=== PATIENT | female | born 1990 | race Caucasian/White ===

== ENCOUNTER → 2025-06-23 | Outpatient (CLI) | payer MEDICAID, SELFPAY ==
--- NOTE | 2025-06-23 15:00 | XR_ITS ---
Examination: Abdomen sonogram, complete Date and time of exam: June 23, 2025 1517 hours INDICATIONS: Epigastric pain beginning 5 months ago. Technique: Multiple real-time grayscale transabdominal sonographic images of the abdomen have been obtained. Findings: Normal gallbladder. Normal common bile duct 0.4 cm Pancreatic head 1.9 cm Aorta not enlarged. Liver 13.1 cm fatty infiltration Normal hepatopedal portal venous flow Patent IVC Right kidney 11.7 cm cortex 1.4 cm, mild right hydronephrosis Left kidney 11.7 cm cortex 1.8 cm Mild hydronephrosis Spleen 8.8 cm IMPRESSION: Normal gallbladder Liver normal size Mild bilateral hydronephrosis, consider CT scan abdomen pelvis without contrast follow-up to assess etiology of the hydronephrosis
--- NOTE | 2025-06-23 15:00 | XR_ITS ---
Examination: Pelvic ultrasound, transabdominal, complete Technique: Transabdominal ultrasound of the pelvis performed using grayscale imaging Date and time of exam: June 23, 2025 1527 hours INDICATIONS: Pelvic pain beginning one year ago FINDINGS: Uterus 9.4 cm endometrial stripe 1.7 cm No uterine mass or intrauterine gestation Right ovary 3.6 cm arterial flow 28 x 22 x 23 mm cyst Left ovary obscured by bowel gas Mild free fluid in the pelvis IMPRESSION: Right ovarian simple cyst 20 x 23 x 22 mm
== END | disposition home or self-care (01) ==
DX: N13.30 Unspecified hydronephrosis (principal); N83.291 Other ovarian cyst, right side
CPT/HCPCS: 76700; 76856

== ENCOUNTER 2025-07-29 10:09 | Emergency (ER) | payer MEDICAID, SELFPAY ==
[2025-07-29 10:09] VITALS: BMI 30.9
[2025-07-29 10:21] VITALS: BP 117/81; PULSE 88; RESP 18; TEMP 36.8; O2SAT 99
--- NOTE | 2025-07-29 10:21 | XR_ITS ---
Examination: CT abdomen and pelvis without contrast. Coronal 3-D reconstructions. Sagittal 2-D reconstructions. Date and time of exam: July 29, 2025, 1249 hours INDICATIONS: Lower abdominal pain and nausea beginning today CTDI: vol (mGy): 8.73 DLP: (mGycm): 482 Technique: Axial images of the abdomen have been obtained, 3 mm slice thickness Intravenous contrast material has not been administered. Low dose protocols were performed. One or more of the following dose reduction techniques were used; automated exposure control, adjustment of the mA and/or KV according to patient size, use of iterative reconstruction technique. Findings: No visualized liver or splenic lesion No gallstones No pancreatic mass Normal adrenal glands Mild right hydronephrosis, no renal or ureteral calculi Aorta normal size Normal appendix Retroverted uterus Enlarged right ovary with cystic change Urinary bladder intact Osseous structures intact IMPRESSION: Mild right hydronephrosis, consider urinary tract infection Normal appendix Right ovarian cystic disease, please see the pelvic sonogram 06/23/2025
--- NOTE | 2025-07-29 10:22 | EDRME_ITS ---
Rapid Medical Screening Exam [facility] Arrival date/time: 07/29/25 10:09 34-year-old female with no known medical history presents to the emergency room with a chief complaint of 10 out of 10 lower abdominal pain, nausea x 1 week I have greeted and performed a focused initial assessment of this patient. A comprehensive ED assessment and evaluation of the patient, analysis of all test results, and completion of the medical decision making process will be conducted by additional ED providers. Chief Complaint: Abdominal Pain Time Seen by Provider: 07/29/25 10:17 Vital signs: Vital Signs Temperature 98.2 F 07/29/25 10:21 Pulse Rate 88 07/29/25 10:21 Respiratory Rate 18 07/29/25 10:21 Blood Pressure 117/81 07/29/25 10:21 Pulse Oximetry (%) 99 07/29/25 10:21 Oxygen Delivery Method Room Air 07/29/25 10:21 Vital signs reviewed by provider: Yes Exam: Patient has 10 out of 10 lower abdominal pain to the right lower quadrant and left lower quadrant with palpation. Patient has active bowel sounds to all 4 quadrants Patient has a strong and regular rhythm S1 and S2 noted Clinical Impression: Gastroenteritis/appendicitis/cholelithiasis
[2025-07-29] MEDS: ONDANSETRON ODT 4 MG TABRAP PO (10:28)
[2025-07-29] MEDS: HYDROcodone/APAP 5/325 TABLET 1 TAB PO (10:28)
[2025-07-29 10:43] LABS: Basophils # (Auto) 0.0 Thou/mm3 (0.0-0.2); Basophils % (Auto) 0 % (0-2.5); Eosinophils # (Auto) 0.1 Thou/mm3 (0.0-0.5); Eosinophils % (Auto) 0 % (0-10); Hematocrit 36.6 % (36.0-46.0); Hemoglobin 12.0 g/dL (12.0-16.0); Immature Granulocytes Auto 0.05 Thou/mm3 (0.00-0.00); Lymphocytes # (Auto) 1.7 Thou/mm3 (1.0-4.8); Lymphocytes % (Auto) 12 % (10-50); Mean Corpuscular HGB Conc 32.8 g/dl (31.0-37.0); Mean Corpuscular Hemoglobin 27.5 pg (25.0-35.0); Mean Corpuscular Volume 84 fL (80-100); Monocytes # (Auto) 0.6 Thou/mm3 (0.0-0.8); Monocytes % (Auto) 4 % (0-12); Neutrophils # (Auto) 11.5 Thou/mm3 (1.8-7.7); Neutrophils % (Auto) 82 % (37-80); Nucleated Red Blood Cell # 0.00 Thou/mm3 (0.00-0.00); Nucleated Red Blood Cell % 0 /100 WBC (0); Platelet Count 403 Thou/mm3 (140-440); RDW Standard Deviation 46.4 fL (36.4-46.3); Red Blood Count 4.37 Miln/mm3 (4.00-5.20); White Blood Count 13.9 Thou/mm3 (3.6-11.0)
[2025-07-29 10:59] LABS: Alanine Aminotransferase 11 U/L (10-49); Albumin, Serum 4.9 gm/dL (3.5-5.0); Albumin/Globulin Ratio 1.9 (1.2-2.2); Alkaline Phosphatase 81 U/L (46-116); Anion Gap 12 (7-16); Aspartate Amino Transferase 15 U/L (0-34); BUN/Creatinine Ratio 13 Ratio (12-20); Bilirubin,Total 0.5 mg/dL (0.3-1.2); Blood Urea Nitrogen 9 mg/dL (9-23); Calcium 9.3 mg/dL (8.3-10.6); Calcium (Corrected) 9.3 mg/dL (8.5-10.1); Carbon Dioxide 23.5 mMol/L (20.0-31.0); Chloride 104 mMol/L (98-107); Creatinine (Component) 0.7 mg/dL (0.6-1.3); Estimated Creatinine Clearance 111.9 mL/min (>60); Globulin 2.6 gm/dL (2.3-3.5); Glucose 127 mg/dL (74-106); Lipase 29 U/L (12-53); Osmolality,Calculated 278 (275-295); Potassium 3.6 mMol/L (3.4-5.1); Sodium 139 mMol/L (136-145); Total Protein 7.5 gm/dL (5.7-8.2); eGFR > 60 See Note
[2025-07-29 11:18] LABS: Collection Type, Urine Clean Catch
[2025-07-29 11:27] LABS: Bilirubin,Urine Negative (Negative); Blood,Urine 3+ (Negative); Glucose, Urine Negative (Negative); Ketones,Urine Trace (Negative); Leukocyte Esterase,Urine Positive (Negative); Nitrite,Urine Negative (Negative); PH,Urine 6.5 (5.0-7.0); Protein,Urine 1+ (Neg - Trace); RBC,Urine 1708 /hpf (0-3); Specific Gravity,Urine 1.026 (1.001-1.035); Squamous Epithelial Cell,Urine 4 /hpf (0-5); Urobilinogen,Urine Negative mg/dL (0.0-1.0); WBC,Urine 7 /hpf (0-5)
[2025-07-29 11:33] LABS: Clarity,Urine Hazy (Clear/Hazy); Color,Urine Lt Yellow (Lt Yel-Yel)
[2025-07-29 11:55] LABS: HCG Qualitative,Urine Negative
--- NOTE | 2025-07-29 12:32 | PD.EDABDPN ---
ED Abdominal Pain RME/HPI General Chief Complaint: Abdominal Pain Stated complaint: R LOWER ABD PAIN X12 HRS Time seen by provider: 07/29/25 10:17 Arrival date/time: 07/29/25 10:09 Source: patient and RN notes reviewed Mode of arrival: ambulatory Limitations: no limitations RME / HPI complaint: abdominal pain Onset (ago): week(s) (1) Consistency: intermittent Location: R flank Severity: mild Severity scale (1-10): 8 Quality: stabbing Radiation: RLQ Migration to: no migration Relieving factors: nothing Exacerbating factors: nothing Context: history of similar episodes (Kidney stone possibly in the past) Associated symptoms: nausea and vomiting RME / HPI narrative: 07/29/25 10:09 34-year-old female with no known medical history presents to the emergency room with a chief complaint of 10 out of 10 lower abdominal pain, nausea x 1 week I have greeted and performed a focused initial assessment of this patient. A comprehensive ED assessment and evaluation of the patient, analysis of all test results, and completion of the medical decision making process will be conducted by additional ED providers. Exam: Patient has 10 out of 10 lower abdominal pain to the right lower quadrant and left lower quadrant with palpation. Patient has active bowel sounds to all 4 quadrants Patient has a strong and regular rhythm S1 and S2 noted Impression: Gastroenteritis/appendicitis/cholelithiasis Related Data LMP Date: 07/29/25 Previous Rx's ?Medication ?Instructions ?Recorded cephalexin 500 mg capsule 500 mg PO BID #6 caps 07/29/25 Allergies Allergy/AdvReac Type Severity Reaction Status Date / Time No Known Allergies Allergy Verified 07/29/25 10:11 Review of Systems Review of Systems Systems Reviewed: All systems reviewed, normal except as documented Constitutional Constitutional: Reports system reviewed and no additional complaints, except as documented and Denies fever(s) Eyes Eyes: Reports system reviewed and no additional complaints, except as documented ENT Ears, Nose, Mouth, and Throat: Reports system reviewed and no additional complaints, except as documented Cardiovascular Cardiovascular: Reports system reviewed and no additional complaints, except as documented, Denies chest pain and Reports dyspnea Respiratory Respiratory: Reports system reviewed and no additional complaints, except as documented, Reports dyspnea and Denies wheezing Gastrointestinal Gastrointestinal: Reports system reviewed and no additional complaints, except as documented, Reports nausea, Reports vomiting and Reports other (Right flank pain) Genitourinary Comments: On her. Musculoskeletal Musculoskeletal: Reports system reviewed and no additional complaints, except as documented, Denies abnormal gait and Denies arthralgias Integumentary/Breasts Skin/Breast: Reports system reviewed and no additional complaints, except as documented and Denies rash Neurologic Neurologic: Reports system reviewed and no additional complaints, except as documented and Denies abnormal gait Psychiatric Psychiatric: Reports system reviewed and no additional complaints, except as documented Allergic/Immunologic Allergic/Immunologic: Denies wheezing ED Exam General Limitations: Present no limitations General appearance: Present alert and in no apparent distress Head Head exam: Present atraumatic Eye Eye exam: Present normal appearance, PERRL and EOMI ENT ENT exam: Present normal exam, normal oropharynx and mucous membranes moist Neck Neck exam: Present normal inspection, full ROM and trachea midline Chest Chest inspection: Present normal inspection and symmetric chest wall rise Respiratory Respiratory exam: Present normal lung sounds bilaterally Cardiovascular Cardiovascular exam: Present regular rate, normal rhythm and normal heart sounds Abdominal Exam Abdominal exam: Present soft and normal bowel sounds Extremities Exam Extremities exam: Present normal inspection and full ROM Back Exam Back exam: Present normal inspection and full ROM Neurological Exam Neurological exam: Present alert, oriented X3 and CN II-XII intact Psychiatric Psychiatric exam: Present normal affect and normal mood Skin Skin exam: Present warm, dry, intact and normal color Course Course Course Narrative: Pain improved to 10/15 Quality Measures none Orders Category Date Time Status CT abdomen pelvis wo con Stat Exams 07/29/25 10:21 Completed CBC Stat Lab 07/29/25 10:30 Completed CMP [Comprehensive Metabolic Panel] Stat Lab 07/29/25 10:30 Completed HCG Qualitative,Urine Stat Lab 07/29/25 11:05 Completed Lipase Stat Lab 07/29/25 10:30 Completed UA [Urinalysis] Stat Lab 07/29/25 11:05 Completed Urine Culture Stat Lab 07/29/25 11:05 Received HYDROcodone*/APAP 5/325 [[place] 5/325] Med 07/29/25 10:21 Discontinued 1 tab PO X1 ONE Ibuprofen Tab [Motrin Tab] Med 07/29/25 13:41 Discontinued 800 mg PO X1 ONE Ondansetron Odt [Zofran Odt] Med 07/29/25 10:21 Discontinued 4 mg PO X1 ONE Vital Signs Vital signs: Vital Signs Temperature 98.2 F 07/29/25 10:21 Pulse Rate 88 10/24/25 10:21 Respiratory Rate 18 07/29/25 10:21 Blood Pressure 117/81 07/29/25 10:21 Pulse Oximetry (%) 99 07/29/25 10:21 Oxygen Delivery Method Room Air 07/29/25 10:21 Abdominal Pain MDM MDM Narrative MDM Narrative:: 34-year-old female with 2 to 3-month history of right flank pain. The patient was seen back in June by her primary care and was noted to have some hydronephrosis on her ultrasound. The patient states she has 1 week history of some right flank pain. The pain is waxing waning in currently improved but still present. The patient denies fevers. No dysuria and otherwise is not sexually active and has no vaginal discharge. Patient is not take any pain meds. Here in the emergency department the patient's labs show that she has a white count of 13 but otherwise kidney function is normal. Normal LFTs. The patient had 1+ protein negative nitrates, negative ketones, 3+ blood and otherwise 7 white cells. She had 1708 red cells. Urinalysis reviewed interpreted by me and is abnormal. CT is reviewed and otherwise shows no appendicitis, no kidney stone, but has right hydronephrosis I do long discussion with the patient. This is similar to her previous ultrasound where she had bilateral hydronephrosis. Differential diagnosis could include kidney stone, passed kidney stone, new onset proteinuria, underlying kidney disease. At this time I do not feel the patient is septic. She is aware that she needs to follow-up with her primary care to get results of the repeat urine culture. She states she was having some dysuria so I have opted to treat her with antibiotics. With a shared decision making and she agrees. Patient data External records reviewed:: [facility] previous records (Previous ultrasound shows bilateral) Clinical information provided by:: patient and family Social determinants that could affect healthcare access:: none Patient has the following chronic illnesses:: None How is presenting disease/condition affected by chronic disease/condition?: no chronic disease Evaluation data The following diagnostics were reviewed and interpreted by me:: lab results Lab and/or radiology exams considered but not ordered:: None Interpretation Summary: White count is 13, hemoglobin is 12/36 and normal. Platelets of 4 3 and normal. Electrolytes are negative except for glucose of 127 which is mildly elevated. Protein in the blood is normal. Urine shows 1+ protein, 3+ blood, otherwise 7 white cells. 1700 red cells in the urine but the patient is also on her period. hCG is negative. Labs are reviewed and interpreted by me. No UTI, no leukocytosis. Medications / Prescriptions Medications or Prescriptions considered but not ordered:: None Medication administrations:: Medication Administration History Discontinued Medications Hydrocodone Bitart/Acetaminophen (Hydrocodone/Apap 5/325 Tablet) 1 tab PO X1 ONE Stop: 07/29/25 10:22 Last Admin: 07/29/25 10:28 Dose: 1 tab Documented By: CORRY Ibuprofen (Ibuprofen Tab 400 Mg Tablet) 800 mg PO X1 ONE Stop: 07/29/25 13:42 Last Admin: 07/29/25 13:44 Dose: 800 mg Documented By: AMEYA Ondansetron HCl (Ondansetron Odt 4 Mg Tabrap) 4 mg PO X1 ONE; Protocol Stop: 07/29/25 10:22 Last Admin: 07/29/25 10:28 Dose: 4 mg Documented By: CORRY As above Consultations Consultation(s) initiated? (list below): No Diagnosis Differential diagnosis abdominal pain: abdominal pain, calculus of kidney, constipation and other (UTI.) Most likely diagnosis given after review of the tests above:: Proteinuria, hematuria. Admission Indicated Admission indicated?: not indicated Admission Request Was there a request for admission?: No Disposition Plan Disposition Plan: Discharge Discharge Attestation Discharge Attestation: The patient and all family members were given an opportunity to ask questions and understood the discharge instructions. Discharge instructions specifically effects, indications for sooner follow up or return to the emergency department, and the expected course of current diagnosis. Patient condition: Stable Discharge Plan Plan Patient Disposition: HOME (Self Care) Patient condition on transfer: Stable Prescriptions/Referrals Prescriptions/Med Rec: New cephalexin 500 mg capsule 500 mg PO BID Qty: 6 0RF Referrals: Shelbie Blount FNP-C [Primary Care Provider] - In 1 week Outpatient Orders: Urine Culture (Routine) Location: None Selected Ordered By: Umm Maria Problem List Clinical Impression: Proteinuria, Hematuria Patient/Caregiver Discharge Instructions Education Materials: ED Proteinuria Additional Instructions: 1. Today you have blood and protein in your urine but you are on your period so I cannot tell if the blood is new or old. However you will need to get a repeat urinalysis when you are not in your.. 2. You have right hydronephrosis but you also had that on your previous study back in June 2025. Would recommend that your primary care physician repeat a renal ultrasound as an outpatient and consider referral to nephrology if needed. 3. We will treat you with Keflex twice a day for the next 3 days. Urine culture will be sent please follow-up with your primary care physician to get the results of the urine culture. Return to the emergency department for worsening symptoms, you cannot drink fluids, or any other concerns. Print Language: Cymro Stand Alone Forms: Kamala Award Info., Patient Portal Info Letter
[2025-07-29] MEDS: IBUPROFEN TAB 400 MG TABLET 800 MG PO (13:44)
== END 2025-07-29 13:51 | disposition home or self-care (01) ==
PROVIDERS: Nurse Practitioner Family; Emergency Provider Emergency Medicine
DX: R31.9 Hematuria, unspecified (principal); R80.9 Proteinuria, unspecified; R10.A1 Flank pain, right side
CPT/HCPCS: 36415; 74176; 80053; 81001; 81025; 83690; 85025; 87086; 99282; Q0162; A9270